=== PATIENT | male | born 1955 | race Caucasian/White ===

== ENCOUNTER 2018-01-06 09:00 | Outpatient (RCR) | payer OTHER | END 2018-04-06 | disposition home or self-care (01) | LOC: WSOH | DX: K43.9 Ventral hernia without obstruction or gangrene (principal); Z79.84 Long term (current) use of oral hypoglycemic drugs; Z79.899 Other long term (current) drug therapy; Z87.891 Personal history of nicotine dependence ==

== ENCOUNTER → 2018-01-21 | Outpatient (CLI) | payer OTHER | LOC: COL.RAD 13:01 | DX: K76.9 Liver disease, unspecified (principal); Z13.89 Encounter for screening for other disorder; Z86.39 Personal history of other endocrine, nutritional and metabolic disease | CPT/HCPCS: Q9967 ==